=== PATIENT | male | born 1935 | race Caucasian/White ===

== ENCOUNTER → 2020-08-19 | Day surgery (SDC) | payer MEDICARE ==
[~2020-08-19] MED LIST: ASPIRIN EC81 MG PO; AUGMENTIN 875-1 EACH PO; CENTRUM SILVER1 EAC1 PO; CLOPIDOGREL75 MG PO; DONEPEZIL HCL10 MG PO; FERROUS SULFAT325 M2 PO; METOPROLOL SUCC25 MG PO; PRAVASTATIN SOD40 MG PO; PROTONIX40 MG PO; VITAMIN B-121000 MC3 PO; Voltaren Gel 1 % TOP
== END | disposition home or self-care (01) ==
LOC: OR 06:21
DX: D50.9 Iron deficiency anemia, unspecified (principal); K29.50 Unspecified chronic gastritis without bleeding; K22.8 Other specified diseases of esophagus; D12.2 Benign neoplasm of ascending colon; K21.00 Gastro-esophageal reflux disease with esophagitis, without bleeding; K22.70 Barrett's esophagus without dysplasia; K25.9 Gastric ulcer, unspecified as acute or chronic, without hemorrhage or perforation; K31.89 Other diseases of stomach and duodenum; K64.1 Second degree hemorrhoids; K64.0 First degree hemorrhoids; I11.0 Hypertensive heart disease with heart failure; I50.9 Heart failure, unspecified; Z79.899 Other long term (current) drug therapy; Z79.82 Long term (current) use of aspirin; Z95.2 Presence of prosthetic heart valve; Z95.0 Presence of cardiac pacemaker
CPT/HCPCS: J2704; J7040

== ENCOUNTER 2021-01-02 14:38 | Emergency (ER) | payer MEDICARE ==
[~2021-01-02 14:38] MED LIST changes: -Voltaren Gel 1 % TOP
[2021-01-02] MEDS ORDERED: Voltaren Gel 1 % TOP (17:47)
== END 2021-01-02 18:47 | disposition home or self-care (01) ==
LOC: ER1 14:38
DX: S22.069A Unspecified fracture of T7-T8 vertebra, initial encounter for closed fracture (principal); W19.XXXA Unspecified fall, initial encounter
CPT/HCPCS: 72072; 72128; 99284

== ENCOUNTER 2021-09-19 18:55 | Inpatient (IN) | payer MEDICARE ==
[~2021-09-19] VITALS: Ht 177.8 cm; Wt 79.4 kg
[~2021-09-19 18:55] MED LIST changes: +Voltaren Gel 1 % TOP
[2021-09-19 19:35] LABS: HEMOGLOBIN 12.2 gm/dl (14.0-17.5); RED BLOOD COUNT 4.21 M/UL (4.20-5.50)
[2021-09-19 20:09] LABS: BUN/CREATININE RATIO 20 (0-10)
[2021-09-20 06:08] LABS: HEMOGLOBIN 11.1 gm/dl (14.0-17.5); RED BLOOD COUNT 3.8 M/UL (4.20-5.50); WHITE BLOOD COUNT 8.7 K/UL (4.5-11.0)
[2021-09-20 08:28] LABS: BUN/CREATININE RATIO 25 (0-10)
[2021-09-20] MEDS ORDERED: CLOPIDOGREL75 MG PO (11:22)
[2021-09-20] MEDS ORDERED: VITAMIN D31250 MCG PO (11:22)
[2021-09-20] MEDS ORDERED: IRON PO (11:23)
[2021-09-21 06:57] LABS: HEMOGLOBIN 12.7 gm/dl (14.0-17.5); WHITE BLOOD COUNT 10.3 K/UL (4.5-11.0)
[2021-09-21 06:59] LABS: RED BLOOD COUNT 4.41 M/UL (4.20-5.50)
[2021-09-21 07:15] LABS: BUN/CREATININE RATIO 24 (0-10)
--- NOTE | 2021-09-22 15:10 | NUR ---
PT INSIST ON TRYING TO VOID PRIOR TO STRAIGHT CATH WITH SAME RESULT OF GRUNTING AND SUCH HE WAS ABLE TO VOID WITH 125ML OUT AND STRAIGHT CATH WITH 300ML OUT.
--- NOTE | 2021-09-22 16:50 | NUR ---
PT STRUGGLING WITH NEEDING TO VOID, GRUNTING ONLY ABLE TO VOID [address]CC DR ALMANZA NOTIFIED AND STARIGHT CATH ORDERED.
[2021-09-23 03:42] LABS: BUN/CREATININE RATIO 16 (0-10)
[2021-09-26] MEDS ORDERED: CEFUROXIME500 MG PO (16:54)
[2021-09-27 04:35] LABS: HEMOGLOBIN 11.1 gm/dl (14.0-17.5); RED BLOOD COUNT 3.79 M/UL (4.20-5.50)
[2021-09-27 05:13] LABS: BUN/CREATININE RATIO 25 (0-10)
[2021-09-27] MEDS ORDERED: FLOMAX 0.4 MG0.4 MG PO (12:36)
== END 2021-09-28 12:29 | disposition home health service (06) | DRG 689 ==
LOC: ER1 18:55 → MED SURG 4 22:00 → CDU 22:00 → MED SURG 4 09-20 18:52
PROVIDERS: Emergency Medicine; Internal Medicine; ADMIT Internal Medicine
PROC: B24BZZZ Ultrasonography of Heart with Aorta (ICD-10-PCS; principal; 2021-09-21)
PROC: 4A10X4Z Monitoring of Central Nervous Electrical Activity, External Approach (ICD-10-PCS; 2021-09-21)
DX: N39.0 Urinary tract infection, site not specified (principal); G93.41 Metabolic encephalopathy; M62.82 Rhabdomyolysis; J98.11 Atelectasis; Z20.822 Contact with and (suspected) exposure to COVID-19; E86.0 Dehydration; I49.5 Sick sinus syndrome; F03.90 Unspecified dementia, unspecified severity, without behavioral disturbance, psychotic disturbance, mood disturbance, and anxiety; I10 Essential (primary) hypertension; K22.70 Barrett's esophagus without dysplasia; D50.9 Iron deficiency anemia, unspecified; E53.8 Deficiency of other specified B group vitamins; W01.0XXA Fall on same level from slipping, tripping and stumbling without subsequent striking against object, initial encounter; N40.1 Benign prostatic hyperplasia with lower urinary tract symptoms; N32.0 Bladder-neck obstruction; B95.1 Streptococcus, group B, as the cause of diseases classified elsewhere; E78.5 Hyperlipidemia, unspecified; Z95.0 Presence of cardiac pacemaker; Z82.0 Family history of epilepsy and other diseases of the nervous system; Z98.890 Other specified postprocedural states; Z79.899 Other long term (current) drug therapy; Z79.82 Long term (current) use of aspirin; Y92.009 Unspecified place in unspecified non-institutional (private) residence as the place of occurrence of the external cause; Z99.3 Dependence on wheelchair; Z95.2 Presence of prosthetic heart valve
CPT/HCPCS: ECHO; 36415; 70450; 71045; 72125; 72128; 72131; 80048; 80053; 80307; 81001; 82140; 82550; 82553; 82803; 82962; 83874; 84484; 85025; 87077; 87086; 93005; 93306; 95816; 96372; 96374; 96375; 96376; 97116-GP-CQ; 97162; 97530; 97530-GP-CQ; 99285; C9113; G0480; J0696; J1200; J2060; J3370; J3486; J7030; J7070; U0002